=== PATIENT | female | born 1970 | race Caucasian/White ===

== ENCOUNTER 2024-09-06 15:36 | Outpatient (CLI) | payer BC, SELFPAY | END 2024-09-06 15:37 | disposition home or self-care (01) | PROVIDERS: PCP Family Medicine; Visit Provider Family Medicine | DX: E03.9 Hypothyroidism, unspecified (principal); M54.50 Low back pain, unspecified; M25.59 Pain in other specified joint; G89.29 Other chronic pain; Z86.39 Personal history of other endocrine, nutritional and metabolic disease; Z11.9 Encounter for screening for infectious and parasitic diseases, unspecified | CPT/HCPCS: 80053; 80061; 82306; 82550; 84439; 84443; 86038; 86140; 86200; 86431; 86618; 86812 ==